=== PATIENT | male | born 1965 ===

== ENCOUNTER 2024-02-26 09:48 | Outpatient (CLI) | payer OTHER, SELFPAY ==
--- NOTE | ~2024-02-26 | MR_ITS ---
MRI of the lumbar spine Clinical History: Stenosis Technique: Axial T2-weighted images, and sagittal T1-weighted, T2-weighted, and and T2 fat-sat images were acquired. Findings: There is no fracture or subluxation of the lumbar spine. Vertebral bodies maintain normal h eight and alignment. No bone marrow signal reality seen. At L1-L2 and L2-L3, there is no disc bulge or herniation. There are mild facet joint degenerative genia nges at these levels. No spinal canal stenosis or neural foraminal narrowing at these levels. At L3-L4, there is no disc bulge or herniation. There is mild facet arthropathy. No central canal tom nosis or neural foraminal narrowing. At L4-L5, there is mild disc bulge and moderate to advanced facet arthropathy. No central canal steno sis. There is moderate left neural foraminal narrowing, and severe right neural foraminal narrowing. At L5-S1, there is severe degenerative disc narrowing. There is minimal disc osteophyte complex. Ther e is moderate to advanced facet arthropathy, right worse than left. No central canal stenosis. There is mild to moderate bilateral neural foraminal narrowing. Paravertebral soft tissues are unremarkable. Impression: Moderate degenerative spondylosis at L4-L5 and L5-S1, as detailed above. Reviewed, dictated and finalized at location . Impression: Moderate degenerative spondylosis at L4-L5 and L5-S1, as detailed above.
== END 2024-02-26 09:49 ==
LOC: MICIMG 09:50
PROVIDERS: PCP Family Medicine; Visit Provider Family Medicine
DX: M48.061 Spinal stenosis, lumbar region without neurogenic claudication (principal); G95.89 Other specified diseases of spinal cord; M54.31 Sciatica, right side; M43.06 Spondylolysis, lumbar region
CPT/HCPCS: 72148